=== PATIENT | male | born 1940 | race Caucasian/White ===

== ENCOUNTER → 2018-08-01 | Outpatient (CLI) | payer BC ==
--- NOTE | 2018-08-01 14:07 | XR ---
Fourth digit left hand HISTORY: Trauma and pain 2 views of the fourth digit of the left hand Bone mineralization, joint spaces and alignment are maintained. Lateral exam shows superimposition of the proximal digit. IMPRESSION: No fracture or dislocation. Follow-up as indicated.
--- NOTE | 2018-08-01 14:09 | XR ---
Right knee HISTORY: Trauma and pain 3 views of the right knee There is joint space loss and marginal spurring, subchondral sclerosis greatest in the medial compart ment. There is a fracture noted at the inferior aspect of the patella with minimal displacement. No d islocation. Suprapatellar increased density compatible joint effusion. IMPRESSION: Patellar fracture, osteoarthritis, joint effusion.
== END | disposition home or self-care (01) ==
LOC: RADXRYALE 10:34
PROVIDERS: ATTEND Physician Assistant
DX: M79.642 Pain in left hand (principal); S82.001A Unspecified fracture of right patella, initial encounter for closed fracture; M17.11 Unilateral primary osteoarthritis, right knee